=== PATIENT | male | born 1965 | race American Indian/Alaskan Native ===

== ENCOUNTER 2021-05-11 02:23 | Emergency (ER) | payer SELFPAY ==
[2021-05-11] MEDS ORDERED: SODIUM CHLORIDE 0.9% 1000 ML 1,000 ML IV ONE (02:51)
[2021-05-11] MEDS ORDERED: LIDOCAINE (1%) 10 MG/1 ML VIAL 20 ML MDV ONE (02:54)
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
[2021-05-11 03:11] LABS: Hematocrit 45.1 % (35.5-45.6); Mean Corpuscular HGB Conc 33 % (32-34); Mean Corpuscular Volume 96 fl (84-94); Platelet Count 250 K/mm3 (140-440); Red Blood Count 4.72 M/mm3 (3.65-5.03); Red Cell Distribution Width 13.2 % (13.2-15.2)
[2021-05-11 03:16] VITALS: BP 155/110
[2021-05-11 03:30] LABS: BUN/Creatinine Ratio 19; Blood Urea Nitrogen 19 mg/dL (9-20); Calcium 8.6 mg/dL (8.4-10.2); Hemolysis Index 238
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
[2021-05-11] MEDS ORDERED: LIDOCAINE (1%) 10 MG/1 ML VIAL 20 ML MDV INFILTRATI ONE (03:34)
[2021-05-11] MEDS ORDERED: KETOROLAC 30 MG/1 ML INJ IV ONE (03:51)
[2021-05-11] MEDS ORDERED: ONDANSETRON 4 MG/2 ML INJ IV ONE (03:51)
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
[2021-05-11 05:44] LABS: Total Cells Counted 100
[2021-05-11 05:47] LABS: Platelet Estimate Consistent w Auto; RBC Morphology Normal
== END 2021-05-11 06:42 | disposition home or self-care (01) ==
LOC: ED 02:37
DX: S21.111A Laceration without foreign body of right front wall of thorax without penetration into thoracic cavity, initial encounter (principal); S01.81XA Laceration without foreign body of other part of head, initial encounter; S01.312A Laceration without foreign body of left ear, initial encounter; S11.91XA Laceration without foreign body of unspecified part of neck, initial encounter; Z79.899 Other long term (current) drug therapy; W26.8XXA Contact with other sharp object(s), not elsewhere classified, initial encounter; Y93.89 Activity, other specified; Y92.89 Other specified places as the place of occurrence of the external cause; Y99.8 Other external cause status
CPT/HCPCS: 12004; 12016; 36415; 70450; 71045; 80048; 85007; 85025; 96361; 96374; 96375; 99284; J1885; J2405; J3490; J7030; 80320; Q0162; G0480